=== PATIENT | female | born 1985 | race Caucasian/White ===

== ENCOUNTER 2025-03-03 12:44 | Emergency (ER) | payer OTHER, SELFPAY ==
--- NOTE | ~2025-03-03 | XR_ITS ---
XR lumbar spine 2-3V 03/03/2025 15:08 Indication: Low back pain after recent fall Procedure: 3 views lumbar spine Comparison: No prior studies for comparison. Findings: Vertebral body heights are maintained. There is mild disc narrowing at L3-4 through L5-S1. There is mild facet hypertrophy at these levels. No evidence for spondylolisthesis. Pedicles intact. Sacral foramen are symmetric. No acute fracture or traumatic malalignment. There is wedge-shaped appearance to T10 and T11, likely chronic. Impression: 1: No acute abnormality of the lumbar spine. 2: Mild lumbar spondylosis. Reviewed, dictated and finalized at location O. Impression: 1: No acute abnormality of the lumbar spine. 2: Mild lumbar spondylosis.
--- OUTSIDE RECORDS SUMMARY | 2025-03-03 12:59 | XMS_ITS | Clinical Summary ---
Author Organization [facility] Address [address] [place] [address] Care Team Providers Care Process Artist Name Role Phone Mariya Rogel MD Primary Care Provider [phone] Source Comments [facility] Affiliates and Associated Physician Practices is amultiple site organization consisting of ambulatory clinics and hospital sitesin [place], [place], [place] and [place]. This disclosure is being madepursuant to the Care Everywhere program and may not contain all information available regarding this patient. Last updated 18.[facility] Allergies Active Allergy Reactions Criticality Noted Date Comments Sulfa Antibiotics Anaphylaxis High 08/29/2023 Medications * Be aware that medications may not be up to date on this document. Alwaysverify current medications with the patient. estradiol (Estrace) 2 MG tablet Take 1 (one) tablet by mouth once daily 90 tablet 4 04/22/2024 Active progesterone 200 mg 200 mg tablet Take 1 (one) tablet by mouth at bedtime Take 1 tablet at bedtime during the first 14 days of the month 90 tablet 3 04/22/2024 Active Calcium Carbonate-Vit D-Min (SM Calcium/Vitamin D3) 600-800 MG-UNIT TABS Take 1 tablet by mouth once daily 90 tablet 3 04/22/2024 Active Family History Medical History Relation Name Comments Cancer - Breast Maternal Aunt Cancer - Skin, Melanoma Maternal Aunt Cancer - Ovarian Paternal Grandmother Cancer - Colon Neg Hx Cancer - Pancreatic Neg Hx Cancer - Prostate Neg Hx Cancer - Uterine Neg Hx Relation Name Status Comments Maternal Aunt Alive Paternal Grandmother Social History Tobacco Use Types Packs/Day Years Used Date Smoking Tobacco: Never Tobacco Cessation:Counseling Given: Not Answered Alcohol Use Standard Drinks/Week Comments Yes 0 (1 standard drink = 0.6 oz pur e alcohol) Comments No Sex and Gender Information Value Date Recorded Sex Assigned at Female 03/06/2024 3:21 PM CDT Legal Sex Female 4:17 PM CDT Gender Identity Not on file Sexual Orientation Not on file Last Filed Vital Signs Vital Sign Reading Time Taken Comments Blood Pressure 112/64 08/08/2024 8:45 AM [employer]IS IN[employer] Pulse 56 08/08/2024 8:50 AM [employer]IS IN[employer] Temperature 36.3 C (97.3 F) 08/08/2024 7:22 AM [employer]ENNIS IN[employer]CTOR Respiratory Rate 16 08/08/2024 8:50 AM TENNIS INSTRUCTOR Oxygen Saturation 100% 08/08/2024 8:50 AM TENNIS INSTRUCTOR Inhaled Oxygen Concentration - - Weight 111.1 kg (245 lb) 08/08/2024 7:20 AM TENNIS INSTRUCTOR Height 182.2 cm (5' 11.75) 08/08/2024 7:[address] Body Mass Index 33.46 08/08/2024 7:20 AM TENNIS INSTRUCTOR Plan of Treatment Health Maintenance Due Date Last Done Comments LIPID TESTING 1984 MAMMOGRAM 1984 HIV SCREENING 02/24/1999 DTAP/TDAP/TD VACCINES (1 - Tdap) 02/24/2003 HEPATITIS B VACCINE (1 of 3 - 19+ 3-dose series) 02/24/2003 PAP SMEAR 02/24/2005 HPV VACCINE (1 - 3-dose SCDM series) 02/24/2011 SCREENING FOR DIABETES 03/06/2024 COVID-19 VACCINE ( - 2023-2 5 season) 2024 11/08/2020, 10/13/2020, 07/11/2020 DEPRESSION SCREENING 07/09/2024 INFLUENZA VACCINE (#1) 2025 ZOSTER VACCINE (1 of 2) 02/24/2034 HEPATITIS C SCREENING Completed 08/31/2023 HIB VACCINE Aged Out No longer eligi ble based on patient's age to complete this topic MENINGOCOCCAL (Group B) VACCINE SHARED DECISION-MAKING Aged Out No longer eligible based on patient's age to complete this topic MENINGOCOCCAL GROUPS A/C/Y/W VACCINE Aged Out No longer eligible b ased on patient's age to complete this topic PNEUMOCOCCAL VACCINE Aged Out No long er eligible based on patient's age to complete this topic Insurance ANTH Care Teams Process Artist Relationship Specialty Start Date End Date Mariya Rogel MD [facility] [address] [place] [id number] PCP - General Internal Medicine 03/06/24
[2025-03-03 13:01] VITALS: BP 128/64; PULSE 64; RESP 18; TEMP 36.6; O2SAT 100
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
== END 2025-03-03 15:46 | disposition home or self-care (01) ==
PROVIDERS: Emergency Provider Nurse Practitioner
DX: S66.912A Strain of unspecified muscle, fascia and tendon at wrist and hand level, left hand, initial encounter (principal); S66.911A Strain of unspecified muscle, fascia and tendon at wrist and hand level, right hand, initial encounter; S39.012A Strain of muscle, fascia and tendon of lower back, initial encounter; S80.02XA Contusion of left knee, initial encounter; V03.10XA Pedestrian on foot injured in collision with car, pick-up truck or van in traffic accident, initial encounter; Y99.0 Civilian activity done for income or pay; M85.80 Other specified disorders of bone density and structure, unspecified site
CPT/HCPCS: 72100; 99213; G0463